=== PATIENT | female | born 1990 | race Caucasian/White ===

== ENCOUNTER 2016-06-19 08:35 | Emergency (ER) | payer OTHER ==
[~2016-06-19] VITALS: Wt 49.0 kg
[2016-06-19] MEDS ORDERED: PEN500 PO (09:42)
--- NOTE | 2016-06-19 12:04 | ERD ---
DATE OF SERVICE: HISTORY OF PRESENT ILLNESS: The patient is a 25-year-old female coming in complaining of a sore thr oat for 2 weeks. She has had no cough. She states she occasionally has ear pain when she swallows, no shortness of breath. No trouble swallowing. Does not feel that her throat is swollen. She has had no fevers. She took ibuprofen with mild alleviation; however, the pain returns after the medic ine wears off. She has had no runny nose. Has had a dry cough. PAST MEDICAL HISTORY: Denies medical problems. ALLERGIES: DENIES ALLERGIES TO MEDICATIONS. PAST SURGICAL HISTORY: Denies. SOCIAL HISTORY: Denies. REVIEW OF SYSTEMS: A 12-point review of systems was done. Refer to HPI for positives, all other sy stems negative. PHYSICAL EXAMINATION VITAL SIGNS: Temperature is 98.6, pulse 87, blood pressure is 125/61, respiratory rate 20, O2 satur ation 98% on room air. Pain intensity 8/10. GENERAL: The patient is well-appearing, well-nourished, no acute distress. HEART: Regular rate and rhythm. No murmurs, clicks, rubs or gallops. No S3 or S4. CHEST: Clear to auscultation bilaterally. There are no rales, wheezes or rhonchi. HEENT: Atraumatic. Conjunctivae are pink. Pupils equal, round, and reactive to light. There is no s cleral icterus. Tympanic membranes clear bilaterally. Oropharynx clear. The patient has erythema n oted to the tonsils bilaterally with no uvula deviation. No unilateral or posterior oropharynx full ness, and no exudate. No nystagmus or photophobia. NECK: The patient does have positive cervical lymphadenopathy. ABDOMEN: Soft, nontender and nondistended. Good bowel sounds. No rebound or guarding. No gross yesica tonitis. No gross organomegaly or masses. No Hickey sign or McBurney point tenderness. SKIN: There is no apparent rash or petechia. The skin is warm and dry. DIAGNOSIS: Sore throat. MEDICAL DECISION MAKING: The patient has had symptoms for 2 weeks. I will treat for a possible str ep infection, but I do not feel that there is concern for peritonsillar retropharyngeal abscess at t his time. I have a low suspicion for meningitis, sepsis, or pneumonia. DISCHARGE: The patient is discharged stable. The patient given a prescription for suspicion for pe nicillin and ibuprofen and told to follow up with primary care within 1 to 2 days for reevaluation. The patient was told if symptoms progress or worsen to return to the ER. All other questions answe red at time of discharge. Discharge summary given at the time of departure. The patient understood and complied with plan. Dictated By: BLAIR ETIENNE for VIKAS SCHULTZ/DARREN Conf#: [id number] DID#: [id number]
== END 2016-06-19 10:08 | disposition home or self-care (01) ==
LOC: FTE 08:35
DX: J02.9 Acute pharyngitis, unspecified (principal)
CPT/HCPCS: 99283

== ENCOUNTER 2016-10-22 21:20 | Emergency (ER) | END 2016-10-23 01:20 | disposition left against medical advice (07) | DX: R10.31 Right lower quadrant pain (principal); N83.201 Unspecified ovarian cyst, right side; R10.2 Pelvic and perineal pain | CPT/HCPCS: 36415; 76856; 80053; 81001; 83690; 85025; Z7502 ==

== ENCOUNTER 2017-08-20 08:02 | Emergency (ER) | END 2017-08-20 09:28 | disposition home or self-care (01) ==

== ENCOUNTER 2018-08-15 10:33 | Emergency (ER) | payer OTHER ==
[~2018-08-15] VITALS: Ht 162.6 cm; Wt 66.9 kg
[~2018-08-15 10:33] MED LIST: ACET500C5 PO; AMOX1TAB10 PO; FLUT9.9S NASAL; PENI500T PO
[2018-08-15 10:48] VITALS: BP 122/59; PULSE 98; RESP 18; Ht 162.6 cm; Wt 66.9 kg
--- NOTE | 2018-08-15 15:08 | ERD ---
ER Documentation Chief Complaint Chief Complaint PT WANTS TO BE CHECKED FOR STD; NO SYMPTOMS, NO DRAINAGE. HPI History of Present Illness: 27-year-old female with no past medical history co geoff in today due to desire to be checked for STDs. Patient reports unprotected sex with partner of 6 years. Patient is suspicious for possible infidelity and wants to be tested. Patient is currently on her menstrual cycle day 6. Patient denies any vaginal discharge or abdominal pain. At home pharmacological/nonpharmacological treatment for symptoms: Denies Denies social concerns; Denies recent foreign travel ROS All systems reviewed and are negative except as per history of present illness. Medications Home Meds Active Scripts Amoxicillin/Potassium Clav (Amox-Clav 875-125 mg Tablet) 875-125 mg Tab, 1 TAB PO BID for 7 Days, #14 TAB Prov:VARGHESE FOSTER PA-C 08/20/17 Fluticasone Propionate (Flonase Allergy Relief) 9.9 Ml [place].susp, 1 SPRAY NASAL DAILY, #1 BOTTLE TO EACH NOSTRIL Prov:VARGHESE FOSTER PA-C 08/20/17 Acetaminophen* (Tylophen*) 500 Mg Capsule, 1 CAP PO Q6H PRN for PAIN AND OR ELEVATED TEMP, #20 CAP Prov:VARGHESE FOSTER PA-C 08/20/17 Penicillin V Potassium* (Penicillin V K*) 500 Mg Tab, 500 MG PO BID for 7 Days, TAB Prov:RUTH BYNUM PA-C 06/19/16 Allergies Allergies: Coded Allergies: No Known Drug Allergies (Verified Allergy, Mild, 01/28/14) PMhx/Soc Medical and Surgical Hx: pt denies Medical Hx, pt denies Surgical Hx History of Surgery: No Anesthesia Reaction: No Hx Neurological Disorder: No Hx Respiratory Disorders: No Hx Cardiac Disorders: No Hx Psychiatric Problems: No Hx Miscellaneous Medical Probl: No Hx Alcohol Use: Yes (3-4xaweek) Hx Substance Use: No Hx Tobacco Use: No Smoking Status: Never smoker FmHx Family History: diabetes; No coronary disease Physical Exam Vitals Vital Signs Date Temp Pulse Resp B/P (MAP) Pulse Ox O2 O2 Flow FiO2 Time Delivery Rate 08/15/18 97.8 98 18 122/59 99 10:48 (80) Physical Exam Const: No acute distress Head: Atraumatic Eyes: Normal Conjunctiva ENT: Normal External Ears, Nose and Mouth. Neck: Full range of motion. No meningismus. Resp: Clear to auscultation bilaterally Cardio: Regular rate and rhythm, no murmurs Abd: Soft, non tender, non distended. Normal bowel sounds Skin: No petechiae or rashes Back: No midline or flank tenderness Ext: No cyanosis, or edema Neur: Awake and alert Psych: Normal Mood and Affect Results 24 hrs Laboratory Tests Test 08/15/18 11:25 08/15/18 11:30 Urine Color YELLOW Urine Clarity CLEAR Urine pH 5.0 Urine Specific [place] 1.018 Urine Ketones NEGATIVE mg/dL Urine Nitrite NEGATIVE mg/dL Urine Bilirubin NEGATIVE mg/dL Urine Urobilinogen NEGATIVE mg/dL Urine Leukocyte Esterase NEGATIVE Jaxon/ul Urine Microscopic RBC 0 /HPF Urine Microscopic WBC 0 /HPF Urine Mucus FEW /HPF Urine Hemoglobin 1+ mg/dL Urine Glucose NEGATIVE mg/dL Urine Total Protein NEGATIVE mg/dl POC Beta HCG, Qualitative NEGATIVE Procedures/MDM ED course includes a thorough examination and history. Medications: -- Imagin Labs: Urinalysis, urine , urogenital wet mount, urine gonorrhea chlamydia Low suspicion for life-threatening medical emergency. Otherwise healthy patient presenting with constellation of symptoms likely representing uncomplicated encounter for STD testing as characterized by history, physical exam findings, lab findings. Urinalysis negative for infection. Urogenital wet mount without any clue cells, without trichomonas. Patient denies prophylactic treatment for gonorrhea chlamydia, states that she would like to wait for the results return. Urine negative. No respiratory distress, otherwise relatively well appearing and nontoxic. Patient educated on diagnoses, prescriptions, follow-up care, return precautions. Strict return precautions given for worsening condition; questions answered discharge. Disposition for discharge with followup in 2 days with PCP/clinic; referrals given to [facility] primary care for further testing on syphilis, HIV, hepatitis. Departure Diagnosis: Primary Impression: Encounter for assessment of STD exposure Condition: Stable Patient Instructions: Std, Suspected (Culture Only) Referrals: COMMUNITY CLINICS YOU HAVE RECEIVED A MEDICAL SCREENING EXAM AND THE RESULTS INDICATE THAT YOU DO NOT HAVE A CONDITION THAT REQUIRES URGENT TREATMENT IN THE EMERGENCY DEPARTMENT. FURTHER EVALUATION AND TREATMENT OF YOUR CONDITION CAN WAIT UNTIL YOU ARE SEEN IN YOUR DOCTORS OFFICE WITHIN THE NEXT 1-2 DAYS. IT IS YOUR RESPONSIBILITY TO MAKE AN APPOINTMENT FOR FOLOW-UP CARE. IF YOU HAVE A PRIMARY DOCTOR --you should call your primary doctor and schedule an appointment IF YOU DO NOT HAVE A PRIMARY DOCTOR YOU CAN CALL OUR PHYSICIAN REFERRAL HOTLINE AT IF YOU CAN NOT AFFORD TO SEE A PHYSICIAN YOU CAN CHOSE FROM THE FOLLOWING [facility] CLINICS [facility] [address] [facility] [address] [facility] [address] [facility] [address] [facility] [address] [facility]. [facility] [address] [facility]. [facility] YOU HAVE RECEIVED A MEDICAL SCREENING EXAM AND THE RESULTS INDICATE THAT YOU DO NOT HAVE A CONDITION THAT REQUIRES URGENT TREATMENT IN THE EMERGENCY DEPARTMENT. FURTHER EVALUATION AND TREATMENT OF YOUR CONDITION CAN WAIT UNTIL YOU ARE SEEN IN YOUR DOCTORS OFFICE WITHIN THE NEXT 1-2 DAYS. IT IS YOUR RESPONSIBILITY TO MAKE AN APPOINTMENT FOR FOLOW-UP CARE. IF YOU HAVE A PRIMARY DOCTOR --you should call your primary doctor and schedule and appointment IF YOU DO NOT HAVE A PRIMARY DOCTOR YOU CAN CALL OUR PHYSICIAN REFERRAL HOTLINE AT . IF YOU CAN NOT AFFORD TO SEE A PHYSICIAN YOU CAN CHOSE FROM THE FOLLOWING [facility] INSTITUTIONS: [facility] [address] [place] [address] [facility] [address] [place] [address] [facility] [address] [place] [address] Additional Instructions: Thank you very much for allowing us to participate in your care. Your health and safety is our top priority at [facility]. It is important to read all discharge instructions and education provided in your discharge packet. Urogenital wet mount swab test we did today did not show any signs of bacterial vaginosis or yeast; These are both infections of the vagina but they are not sexually transmitted. Your urogenital wet mount test did also not show any signs of trichomonas, which is a sexually transmitted infection. The gonorrhea chlamydia testing that was done on your urine will have results in 2 to 3 days. He can get a copy of your results from the medical records office. Although you declined prophylactic/preventative treatment, If the test is positive, we will contact you for treatment. For any HIV, syphilis, hepatitis testing; you will need to go to the clinic or health department. Call your primary care doctor TOMORROW for an appointment during the next 2-4 days and bring all the information. If the symptoms get worse and your provider is unavailable, return to the Emergency Department immediately. KATIE DURAN NP Aug 15, 2018 15:08
== END 2018-08-15 14:37 | disposition home or self-care (01) ==
LOC: FTE 10:33
DX: Z11.3 Encounter for screening for infections with a predominantly sexual mode of transmission (principal)
CPT/HCPCS: 81001; 81025; 87210; 87591; Z7502; 99283